=== PATIENT | male | born 1975 | race Caucasian/White ===

== ENCOUNTER → 2025-01-14 12:37 | Outpatient (REF) | payer OTHER, SELFPAY | LOC: RAD 12:37 | PROVIDERS: ATTENDING PHYSICIAN Physician Assistant Medical; FAMILY PHYSICIAN Family Medicine | DX: R10.84 Generalized abdominal pain (principal) | CPT/HCPCS: 74177; Q9967 ==

== ENCOUNTER 2025-01-17 18:53 | Emergency (ER) | payer OTHER, SELFPAY ==
[2025-01-17 18:55] VITALS: BP 147/91
[2025-01-17 19:14] LABS: % Basophils 0.7 % (0-2); % Eosinophils 7.4 % (0-6); % Immature Granulocytes 0.3 % (0-0.5); % Neutrophils 69.6 % (42.2-75.2); Absolute Basophils 0.1 10^3/uL (0-0.2); Absolute Eosinophils 0.8 10^3/uL (0-0.7); Absolute Lymphocytes 1.8 10^3/uL (1.2-3.4); Absolute Monocytes 0.5 10^3/uL (0.1-0.6); Absolute Neutrophils 7.2 10^3/uL (1.4-6.5); Hematocrit 41.5 % (39.0-52.0); Hemoglobin 14.2 g/dL (13.0-18.0); Mean Corp Hgb Conc. 34.2 g/dL (33.0-37.0); Nucleated Red Blood Cells % 0 % (-); Platelet Count 244 10^3/uL (130-400); Red Blood Cell Count 5.46 10^6/uL (4.70-6.10); Red Cell Dist. Width 14.5 % (11.5-14.5); White Blood Cell Count 10.3 10^3/uL (4.8-10.8)
[2025-01-17 19:31] LABS: ALT (SGPT) 23 U/L (0-50); AST (SGOT) 26 U/L (17-59); Albumin 4.1 g/dl (3.5-5.0); Alkaline Phosphatase 46 U/L (38-126); Blood Urea Nitrogen 16 mg/dl (9-20); Calcium 9.6 mg/dl (8.4-10.2); Carbon Dioxide 29 mmol/L (22-30); Chloride 105 mmol/L (98-107); Glucose 83 mg/dl (70-99); Lipase 112 U/L (23-300); Potassium 4.2 mmol/L (3.5-5.1); Sodium 139 mmol/L (135-145); Total Bilirubin 0.5 mg/dl (0.2-1.3); Total Protein 6.8 g/dl (6.3-8.2); eGFR > 60.00
--- NOTE | 2025-01-17 19:47 | ED.GENMED ---
History of Present Illness
General
Chief Complaint: Abdominal Pain
Source: patient
Exam Limitations: none
Time Seen by Provider: 01/17/25 19:20
Nursing documentation reviewed up to this point in time: agreed with
History of Present Illness
History of Present Illness:
Patient presents to ED secondary to persistent, intermittent abdominal pain over the past 10 days. Patient was evaluated by his primary care physician and had an outpatient CT scan ordered, which revealed multiple gallstones with inflammatory
changes noted in his small intestine. Patient had been taking PPI along with bland diet. Patient was referred to a GI physician for an outpatient consultation. However, patient is experiencing worsening pain with meals, along with bloating
sensation, including this afternoon, when he had ham and cheese sandwich. Denies fever or chills. Reports mild nausea sensation without vomiting, along with intermittent episodes of diarrhea. Denies recent illness.
Past History
Past History
ED Past Medical History: None, GERD, HTN and Hypercholesterolemia
ED Past Surgical History: Orthopedic
Social History
Tobacco: Non-smoker
Personal:
Living: with family
Employment: Employed
Review of Systems
Review of Systems
Allergies reviewed?: Yes
All Other Systems: ROS reviewed and negative except as documented in HPI and ROS
Constitutional: Reports no symptoms; Denies fever
Respiratory: Reports no symptoms
Cardiac: Reports no symptoms
ABD/GI: Reports abdominal pain and diarrhea; Denies nausea or vomiting
Musculoskeletal: Reports no symptoms
Skin: Reports no symptoms
Neurological: Reports no symptoms
Phy Exam
Physical Exam
Physical Exam:
Physical Exam
General: no apparent distress, not acutely ill. afebrile
Head: nc/at. eomi
Neck: supple. normal range of motion.
Heart: s1/s2 regular rate and rhythm
Lungs: no acute respiratory distress. clear bilaterally
Abdomen: normal bowel sounds. mild epigastric/RUQ tenderness
Neuro: alert and oriented x 3. no focal neurological deficits
Skin: no rash
Psychiatric: well kept. interactive and cooperative
Extremities: no edema. no calf tenderness.
Course
Orders/Labs/Results
Orders:
Orders
01/17/25 18:59
Electrocardiogram (*1) Urgent
Reason for Study: Abdominal Pain
EKG- Treatment ONCE
01/17/25 19:03
Complete Blood Count/With Diff Urgent
Comprehensive Metabolic Panel Urgent
Lipase Urgent
01/17/25 20:04
US Abdomen Complete/Upper Urgent
Comment:
Reason For Exam: RUQ/epigastric pain
Abnormal Lab Results
01/17/25
19:03
MCV 76.0 L fL
(80.0-94.0)
MCH 26.0 L pg
(27.0-31.0)
Absolute Neuts (auto) 7.2 H 10^3/uL
(1.4-6.5)
Absolute Eos (auto) 0.8 H 10^3/uL
(0-0.7)
Lymphocytes % 17.0 L %
(20.5-51.1)
Eosinophils % 7.4 H %
(0-6)
01/17/25 19:03
01/17/25 19:03
Vital Signs
Initial and Last Documented VS:
Initial Vital Signs
Temp Pulse Resp BP Pulse Ox
98.6 F 63 16 147/91 99
01/17/25 18:55 01/17/25 18:55 01/17/25 18:55 01/17/25 18:55 01/17/25 18:55
Last Documented Vital Signs
Temp Pulse Resp BP Pulse Ox
98.6 F 78 20 142/70 99
01/17/25 18:55 01/17/25 21:49 01/17/25 21:49 01/17/25 21:49 01/17/25 21:49
MDM/Problems Addressed
MDM/Problems Addressed:
Abdominal ultrasound report reviewed and discussed with patient. Patient otherwise remains afebrile, hemodynamically stable, and nontoxic appearing.
Discussed with on-call GI physician, Dr. Roth. As long as patient feels comfortable going home, feels that patient can be managed as outpatient, with urgent outpatient follow-up. In the meantime, recommend increasing PPI to twice daily, adding
Carafate, along with bland diet.
Patient and spouse expressed understanding at time of discharge. Return to ED with worsening symptoms, i.e. fever/worsening pain/vomiting.
*Critical Care Note
Total Time (30-74mins, 75-104mins- exclusive of procedures): Not Applicable
ED Attending Note
-
Portions of this chart may have been created with voice recognition software.� Occasional wrong word or��sound alike� substitutions may have occurred due to the inherent limitations of voice recognition software.
Discharge Plan
Departure
Patient Disposition: Home (Routine Discharge)
Date of Disposition: 01/17/25
Time of Disposition: 21:26
Patient with high blood pressure during this ER visit?: Yes
Condition: Good
Discharge Problem:
Abdominal pain
Instructions: [place] diet, Abdominal Pain
Prescriptions:
New
sucralfate [Carafate] 100 mg/mL suspension
10 ml PO ACHS Qty: 400 0RF
No Action
ibuprofen 600 MG tablet
600 mg PO Q6H PRN (Reason: pain) Qty: 20 0RF
atorvastatin 10 MG tablet
10 mg PO QPM
lisinopril 20 MG tablet
20 mg PO QPM
testosterone cypionate 200 MG/1 ML oil
0.5 mg IM WEEKLY
Referrals:
Rufino Garcia MD [Family Provider] -
Ruba Roth DO [Active] -
Activity Restrictions/Additional Instructions:
As discussed, please follow-up with referred GI physician for further evaluation and treatment. Please return to ED with worsening symptoms, i.e. fever/worsening pain/vomiting. Your prescription has been sent electronically to [facility] in
[place].
Interventions
Interventions:
*Risk Screen - Suicide Last Done: 01/17/25 18:55
*General Assessment Last Done: 01/17/25 18:55
*Neglect/Abuse Screening Last Done: 01/17/25 18:55
*Nursing Disposition Last Done: 01/17/25 21:52
QR-Yilkhw-Jnkviqpwtn Assessment Last Done: 01/17/25 19:22
Discharge Date and Time
Discharge Date/Time: 01/17/25 21:53
Print Language: AMERICAN
[2025-01-17 21:49] VITALS: BP 142/70
== END 2025-01-17 21:53 | disposition home or self-care (01) ==
LOC: EMR 18:53
PROVIDERS: Emergency Medicine; EMERGENCY PHYSICIAN Emergency Medicine; FAMILY PHYSICIAN Family Medicine
DX: R10.9 Unspecified abdominal pain (principal)
CPT/HCPCS: 99284; 76700; 80053; 83690; 85025; 93005

== ENCOUNTER 2025-02-23 06:22 | Day surgery (SDC) | payer OTHER, SELFPAY | END 2025-02-23 11:15 | disposition home or self-care (01) | LOC: GI 06:22 | PROVIDERS: ATTENDING PHYSICIAN Internal Medicine Gastroenterology | DX: Z12.11 Encounter for screening for malignant neoplasm of colon (principal); R19.4 Change in bowel habit; K57.30 Diverticulosis of large intestine without perforation or abscess without bleeding; K64.0 First degree hemorrhoids; R13.10 Dysphagia, unspecified; R10.84 Generalized abdominal pain; R14.0 Abdominal distension (gaseous); D12.0 Benign neoplasm of cecum; K31.9 Disease of stomach and duodenum, unspecified | CPT/HCPCS: 45385; 45380; 43239; 88305; 88342 ==

== ENCOUNTER → 2025-05-05 07:16 | Outpatient (REF) | payer OTHER, SELFPAY | LOC: MRI 3T 07:16 | PROVIDERS: ATTENDING PHYSICIAN Orthopaedic Surgery Hand Surgery; FAMILY PHYSICIAN Family Medicine | DX: M75.122 Complete rotator cuff tear or rupture of left shoulder, not specified as traumatic (principal); M75.42 Impingement syndrome of left shoulder | CPT/HCPCS: 73221 ==